=== PATIENT | male | born 1985 | race Caucasian/White ===

== ENCOUNTER 2017-11-08 14:26 | Emergency (ER) | payer MEDICAID ==
[~2017-11-08] VITALS: Ht 190.5 cm; Wt 85.4 kg
[2017-11-08 14:28] VITALS: BP 140/84
[2017-11-08] MEDS ORDERED: BACITRACIN ZINC OINT 500U/GM, 0.9 GM ONE (19:55)
== END 2017-11-08 16:24 | disposition home or self-care (01) ==
LOC: ED 15:00
DX: R21 Rash and other nonspecific skin eruption (principal)
CPT/HCPCS: 36415; 87806; 99283; G0475

== ENCOUNTER 2018-02-19 08:45 | Emergency (ER) | payer MEDICAID ==
[~2018-02-19] VITALS: Ht 190.5 cm; Wt 88.5 kg
[2018-02-19] MEDS ORDERED: SODIUM CHLORIDE 0.9%, 500ML IVBOLUS ONE (09:00)
[2018-02-19] MEDS ORDERED: ONDANSETRON ODT 4 MG PO ONE (09:00)
[2018-02-19] MEDS ORDERED: [UNRECOGNIZED DRUG - CODE] PO (09:01)
[2018-02-19] MEDS ORDERED: ONDANSETRON ODT 4 MG ONE (09:01)
[2018-02-19] MEDS ORDERED: ARIP2TAB2 PO (09:01)
[2018-02-19 10:06] VITALS: BP 113/76
== END 2018-02-19 10:17 | disposition home or self-care (01) ==
LOC: ED 10:00
DX: F10.129 Alcohol abuse with intoxication, unspecified (principal)
CPT/HCPCS: 96360; 99284; J7040; Q0162; 99283